=== PATIENT | female | born 1950 | race Caucasian/White ===

== ENCOUNTER 2018-02-23 06:59 | Day surgery (SDC) ==
[2018-02-23] MEDS: TETRACAINE 0.5% UNIT-DOSE OP PRN ×2 (07:18→07:54)
[2018-02-23] MEDS: BETADINE OPTH PREP OP PRN ×2 (07:18→07:54)
[2018-02-23] MEDS: CYCLOGYL 2% OPTH OP PRN ×3 (07:19→07:29)
[2018-02-23] MEDS ORDERED: ZOFRAN 4 MG/2 ML IVP ONE (07:23)
[2018-02-23] MEDS ORDERED: BRIMONIDINE TARTRATE 0.2% OPTH SOL OP PRN (07:23)
[2018-02-23] MEDS ORDERED: LIDOCAINE 1% 20 ML MDV ID STA (07:23)
[2018-02-23] MEDS: DEX-MOXI-KETOR OPTH INJ 1/0.5/0.4 MG/ML IO ONE ×2 (07:46→08:02)
[2018-02-23] MEDS: BSS WITH EPINEPHRINE OP ONE ×2 (07:46→08:02)
[2018-02-23] MEDS: LIDOCAINE 1%/PHENYLEPHRINE 1.5% BSS (SURGERY) INTRAOCULA ONE ×2 (07:46→08:02)
[2018-02-23] MEDS ORDERED: VERSED ONE (07:55)
[2018-02-23] MEDS ORDERED: DIPRIVAN 20 ML VIAL IVP ONE (07:55)
[2018-02-23] MEDS ORDERED: ZOFRAN 4 MG/2 ML ONE (07:55)
[2018-02-23 09:27] VITALS: TEMP 983
[2018-02-24 12:42] VITALS: BP 123/66
== END 2018-02-23 09:00 | disposition home or self-care (01) ==
LOC: SURG 06:59
PROVIDERS: ATTEND Ophthalmology
DX: H25.812 Combined forms of age-related cataract, left eye (principal)

== ENCOUNTER 2018-03-09 06:15 | Day surgery (SDC) | payer OTHER ==
[2018-03-09] MEDS: BETADINE OPTH PREP OP PRN ×2 (06:30→07:18)
[2018-03-09] MEDS: TETRACAINE 0.5% UNIT-DOSE OP PRN ×2 (06:30→07:18)
[2018-03-09] MEDS: CYCLOGYL 2% OPTH OP PRN ×3 (06:31→06:46)
[2018-03-09] MEDS ORDERED: LIDOCAINE 1% 20 ML MDV ID STA (06:40)
[2018-03-09] MEDS ORDERED: BRIMONIDINE TARTRATE 0.2% OPTH SOL OP PRN (06:40)
[2018-03-09] MEDS ORDERED: BSS WITH EPINEPHRINE OP ONE (06:40)
[2018-03-09] MEDS ORDERED: ZOFRAN 4 MG/2 ML IVP ONE (06:40)
[2018-03-09] MEDS ORDERED: LIDOCAINE 1%/PHENYLEPHRINE 1.5% BSS (SURGERY) INTRAOCULA ONE (06:40)
[2018-03-09] MEDS ORDERED: DEX-MOXI-KETOR OPTH INJ 1/0.5/0.4 MG/ML IO ONE (06:40)
[2018-03-09 06:44] VITALS: TEMP 97.4
[2018-03-09] MEDS ORDERED: DIPRIVAN 20 ML VIAL IVP ONE (07:42)
[2018-03-09] MEDS ORDERED: ZOFRAN 4 MG/2 ML ONE (07:42)
[2018-03-09] MEDS ORDERED: VERSED ONE (07:42)
[2018-03-11 08:17] VITALS: BP 125/75
== END 2018-03-09 08:20 | disposition home or self-care (01) ==
LOC: SURG 06:15
PROVIDERS: ATTEND Ophthalmology
DX: H25.811 Combined forms of age-related cataract, right eye (principal)